=== PATIENT | female | born 1995 | race Hispanic/Latino ===

== ENCOUNTER 2017-07-16 18:37 | Emergency (ER) | payer OTHER ==
[2017-07-16 18:44] VITALS: BP 145/81; PULSE 98; RESP 18; TEMP 98; O2SAT 99
--- NOTE | 2017-07-16 19:04 | ED PDOC ---
HPI: Headache Time Seen by Provider: 07/16/17 18:55 Chief Complaint (Nursing): Eye Problem Chief Complaint (Provider): Headache and eye problem History Per: Patient History/Exam Limitations: no limitations Onset/Duration Of Symptoms: Days (x 5) Current Symptoms Are (Timing): Still Present Additional Complaint(s): Megan is a 22 y/o female who presents to the ED for a possible head injury suffered 5 days ago. Patient believes she may have fallen while intoxicated, since she woke up with a black eye and swelling to the left skull. Reports having a lingering headache and feeling tired since then. Denies any associated changes in vision, weakness, problems thinking, changes in speech, epistaxis, nausea, or vomiting. PMD: Unknown Past Medical History Reviewed: Historical Data, Nursing Documentation, Vital Signs Vital Signs: Last Vital Signs Temp 98 F 07/16/17 18:41 Pulse 98 H 07/16/17 18:41 Resp 18 07/16/17 18:41 BP 145/81 07/16/17 18:41 Pulse Ox 99 07/16/17 18:41 - Medical History PMH: No Chronic Diseases - Family History Family History: States: Unknown Family Hx - Social History Current smoker - smoking cessation education provided: No Alcohol: Social Drugs: Denies - Allergies Allergies/Adverse Reactions: Allergies Allergy/AdvReac Type Severity Reaction Status Date / Time No Known Allergies Allergy Verified 07/16/17 18:44 Review of Systems ROS Statement: Except As Marked, All Systems Reviewed And Found Negative Eyes: Positive for: Other (Ecchymosis surrounding the left eye) Gastrointestinal: Negative for: Nausea, Vomiting Neurological: Positive for: Headache. Negative for: Weakness, Change in Speech , Confusion Physical Exam - Reviewed Nursing Documentation Reviewed: Yes Vital Signs Reviewed: Yes - Physical Exam Appears: Positive for: Well, Non-toxic, No Acute Distress Head Exam: Positive for: NORMOCEPHALIC. Negative for: ATRAUMATIC (Small hematoma to the left skull) Skin: Positive for: Normal Color, Warm, Dry Eye Exam: Positive for: Normal appearance, EOMI, PERRL, Other (Small ecchymosis to the left eye but no erythema) Neck: Positive for: Normal, Painless ROM Extremity: Positive for: Normal ROM, Other (Moving all extremities). Negative for: Deformity Neurologic/Psych: Positive for: Alert, generation technician II-XII (intact), Oriented, Gait ( Steady), Other (Normal speech with appropriate responses). Negative for: Motor/ Sensory Deficits - ECG O2 Sat by Pulse Oximetry: 99 (RA) Pulse Ox Interpretation: Normal Medical Decision Making Medical Decision Making: Time: 19:05 Plan: --Does not meet the [place] CT rules. Patient is medically stable for discharge. Clinical Impression: Head injury, Concussion, Contusion of left eye --Advised patient to apply warm compress to the ecchymotic area --Provided patient with concussion protocol information. All questions were answered. --There is agreement to discharge plan. Return if symptoms persist or worsen. Scribe Attestation: Documented by Aggie Borrego, acting as a scribe for Nellie Lomeli PA-C Provider Scribe Attestation: All medical record entries made by the Scribe were at my direction and personally dictated by me. I have reviewed the chart and agree that the record accurately reflects my personal performance of the history, physical exam, medical decision making, and the department course for this patient. I have also personally directed, reviewed, and agree with the discharge instructions and disposition. Disposition - Clinical Impression Clinical Impression: Contusion, eye, Head injury, Concussion - Patient ED Disposition Is Patient to be Admitted: No Counseled Patient/Family Regarding: Diagnosis, Need For Followup - Disposition Disposition: Routine/Home Disposition Time: 19:08 Condition: STABLE Instructions: Black Eye (ED), Concussion (ED), Head Injury (ED) Forms: [employer] (Maltese)
== END 2017-07-16 19:10 | disposition home or self-care (01) ==
LOC: H.ER 18:37
DX: S06.0X0A Concussion without loss of consciousness, initial encounter (principal); S05.12XA Contusion of eyeball and orbital tissues, left eye, initial encounter; W19.XXXA Unspecified fall, initial encounter; Y92.89 Other specified places as the place of occurrence of the external cause